=== PATIENT | female | born 1940 | race Caucasian/White ===

== ENCOUNTER 2022-03-21 15:23 | Emergency (ER) | payer MEDICARE, BC, SELFPAY ==
[2022-03-21 15:37] VITALS: BP 137/77; PULSE 91; RESP 18; TEMP 36.7; O2SAT 98; BMI 29.2
[2022-03-21 16:00] VITALS: BP 145/96; RESP 93; O2SAT 98
--- NOTE | 2022-03-21 16:06 | ED.GENADULT ---
HPI - General Adult General Chief complaint: Flank Pain Stated complaint: Back Left Pain - Possible Kidney Issue Time Seen by Provider: 03/21/22 15:52 Source: patient Mode of arrival: ambulatory Limitations: other (Seems to be a small degree of cognitive impairment.) History of Present Illness HPI narrative: 82-year-old female self-referred to the emergency department. She states that she began having left flank area pain for the past 3 days, intermittent, was severe as early as this morning. Now the pain seems to radiate into the left lower quadrant and lateral hip area. It is not accompanied by fever, hematuria, dysuria. She denies any nausea vomiting, diarrhea or blood in her stools. It is not affected by eating, she does not give me a clear answer when I ask if it is worse with urination. No prior history of similar symptoms. Denies any injury or trauma. She has not tried taking any Tylenol, ibuprofen or any other interventions to help with her symptoms. She denies any prior history of kidney stones. She tried to present to urgent care today, they cited that she would need to be evaluated in the emergency department. States the pain is sharp at times and then dull and achy at others. Does not really seem to radiate but it has moved. She is currently not symptomatic at the time of my interview. She is mostly concerned that this could be a kidney problem. She denies a prior history of kidney disease. Past medical history she states is benign, no major long-term health problems. 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 She denies any prior colonoscopy. She has also had a tubal ligation. She says she takes no prescription medications, she has no allergies. Social history without any unusual substance use or pertinent travel. ROS is notable for the intra-abdominal, urinary area and musculoskeletal symptoms as described above. Otherwise denies times 12 systems. Related Data Previous Rx's Medication Instructions Recorded levofloxacin 500 mg tablet 500 mg PO DAILY #7 tabs 03/21/22 Allergies Allergy/AdvReac Type Severity Reaction Status Date / Time No Known Drug Allergies Allergy Verified 03/21/22 15:36 PFSH PFS Social History Smoking Status: Never smoker Do you use any of these nicotine containing products: None Second hand tobacco smoke exposure: Yes How often do you have a drink containing alcohol: monthly or less How many standard drinks containing alcohol do you have on a typical day: 1 or 2 How often do you have six or more drinks on one occasion: Never AUDIT-C Alcohol total score: 1 Non-prescribed substance use: denies use service: No Exam Const: Vital Signs, click to edit/add: Vital Signs - 24 hr 03/21/22 15:37 03/21/22 16:00 Temperature 98.1 F Pulse Rate [Pulse Oximeter] 91 Respiratory Rate 18 93 H Blood Pressure [Ri ght Upper Arm] 137/77 145/96 H Pulse Oximetry 98 98 Oxygen Delivery Me thod Room Air Room Air Documenting provider has reviewed patient's vital signs: yes Common normals: no apparent distress General appearance: cooperative, comfortable and well kempt HENMT: Common normals: normocephalic Head and scalp: normocephalic Face and sinus: normal facial exam Mouth: oral and palatal mucosa normal Throat: posterior oropharynx normal Eye: Common normals: conjunctivae normal and no scleral icterus Conjunctiva: conjunctiva(e) normal Neck & C-Spine: Common normals: no lymphadenopathy and supple Resp: Common normals: normal respiratory effort, no use of accessory muscles and clear to auscultation bilaterally Effort & inspection: able to speak in complete sentences Auscultation: clear to auscultation bilaterally Cardio: Common normals: regular rate, regular rhythm, S1 normal heart sound, S2 normal heart sound, no murmurs and peripheral pulses 2+ throughout Rate: regular rate Rhythm: regular rhythm Heart sounds: S1 normal and S2 normal Peripheral pulses: pulses 2+ throughout GI: Common normals: Normal to inspection, nondistended, normoactive bowel sounds present, soft to palpation, non-tender, no hepatosplenomegaly and no masses Palpation: soft and no hepatosplenomegaly : Other: Mild CVA tenderness on the left only, none on the right. Back & Pelvis: Other: Mild CVA tenderness as described above though it was not fully reproducible. She is also tender on palpation of the left SI joint but not the lumbar spine. She is also tender to the greater trochanter on the left side but has normal range of motion of the left hip with no tenderness to manipulation of the glenohumeral joint. Neuro: Speech: speech normal Motor exam: no tremor noted and no movement abnormalities noted Psych: Appearance: well kempt Attitude: calm and engaged Insight: fair Judgement: fair Skin: Common normals: no rashes or lesions noted General skin exam: no rashes or lesions noted Course Course Hospital Course: Suspect musculoskeletal etiology though cannot exclude urogenital or renal etiology. Recommend UA, basic screening labs. Will give 650 of Tylenol x1 and re-evaluate. If any signs of bladder infection, would recommend CT scan of the abdomen and pelvis. Vital Signs Vital signs: Initial Vital Signs Temperature 98.1 F 03/21/22 15:37 Temperature Source Temporal Artery Scan 03/21/22 15:37 Pulse Rate 91 03/21/22 15:37 Pulse Rhythm 03/21/22 15:37 Respiratory Rate 18 03/21/22 15:37 Blood Pressure 137/77 03/21/22 15:37 Blood Pressure Mean 97 03/21/22 15:37 Blood Pressure Position Supine 03/21/22 15:37 Pulse Oximetry 98 03/21/22 15:37 Oxygen Delivery Method 03/21/22 15:37 Vital Signs Temperature 98.1 F 03/21/22 15:37 Pulse Rate 91 03/21/22 15:37 Respiratory Rate 18 03/21/22 15:37 Blood Pressure 137/77 03/21/22 15:37 Pulse Oximetry 98 03/21/22 15:37 Oxygen Delivery Method 03/21/22 15:37 Temperature 98.1 F 03/21/22 15:37 Pulse Rate 91 03/21/22 15:37 Respiratory Rate 93 H 03/21/22 16:00 Blood Pressure 145/96 H 03/21/22 16:00 Pulse Oximetry 98 03/21/22 16:00 Oxygen Delivery Method 03/21/22 16:00 Medical Decision Making MDM Narrative Medical decision making narrative: Discussed 5 labs with patient. I recommended a CT scan to look for a kidney stone which she declines at this time, citing that she has kept her family member waiting too long today. Discuss that infection in the setting of kidney stone can be bothersome and problematic. It is somewhat reassuring that her pain has improved. She was agreeable to coming back to the emergency department if she worsens clinically or if her pain is not resolved on the antibiotics. There was no convincing her otherwise. Labs otherwise do not indicate any signs of sepsis or other worrisome findings such as kidney disease, electrolyte abnormality etc.. Patient will be given single dose of levofloxacin and continue on this once daily for the next 7 days. Alarm symptoms reviewed and discussed also given in writing at discharge. All questions answered Lab Data Lab results reviewed: Yes I reviewed the patient's lab results Labs: Lab Results 03/21/22 03/21/22 03/21/22 Range/Units 16:17 16:17 16:30 WBC 12.71 H (4.50-11.00) K/uL RBC 4.45 (4.00-5.20) m/uL Hgb 12.6 (12.0-16.0) gm/dL Hct 38.9 (33.0-51.0) % MCV 87 (80-100) fL MCH 28 (26-34) pg MCHC 32 (32-36) gm/dL RDW Coeff of Kang 13.5 (11.5-15.5) % Plt Count 164 (140-440) K/uL Neut % (Auto) 82.4 H (42.0-72.0) % Lymph % (Auto) 5.7 L (20-44) % Carver % (Auto) 11.2 H (0.0-11.0) % Eos % (Auto) 0.2 (0.0-7.0) % Baso % (Auto) 0.3 (0.0-3.0) % Neut # (Auto) 10.50 H (1.7-7.0) K/uL Lymph # (Auto) 0.70 L (0.90-2.90) K/uL Carver # (Auto) 1.40 H (0.00-0.90) K/UL Eos # (Auto) 0.00 (0.00-0.50) K/uL Baso # (Auto) 0.00 (0.00-0.30) K/uL Abs Immat Gran (auto) 0.00 (0.00-0.30) K/uL Imm/Tot Granulo (auto) 0.2 % Sodium 135 (135-149) mmol/L Potassium 3.4 L (3.6-5.1) mmol/L Chloride 100 (96-114) mmol/L Carbon Dioxide 26 (20-32) mmol/L BUN 26 (7-30) mg/dL Creatinine 0.8 (0.5-1.5) mg/dL Estimated Creat Clear 36.16 Estimated GFR 73 ml/min Glucose 108 (60-115) mg/dL Calcium 9.5 (8.4-10.6) mg/dL C-Reactive Protein 19.2 H (0.5-1.0) mg/dL Urine Color Dark yellow (Yellow) Urine Appearance Cloudy A (Clear) Urine pH 6.5 (5.0-8.5) Ur Specific [place] 1.020 (1.000-1.030) Urine Protein 2+ A (Negative) Urine Glucose (UA) Negative (Negative) Urine Ketones 1+ A (Negative) Urine Blood 2+ A (Negative) Urine Nitrite Positive A (Negative) Urine Bilirubin 1+ A (Negative) Urine Urobilinogen 1.0 (0.2-1.0) Ur Leukocyte Esterase 3+ A (Negative) Urine RBC 25-50 A (0-2) Urine WBC 5-10 A (0-5) Urine WBC Clumps Moderate A (None) Ur Squamous Epith Cells Few (None-Few) Urine Bacteria Many A (None) Discharge Plan Discharge Clinical Impression: Complicated UTI (urinary tract infection) Patient Disposition: Home w/ Parent or Adult Condition: Stable Instructions: Urinary Tract Infection in Older Adults (ED) Additional Instructions: As we discussed, you would definitely have a urinary infection. You need to start antibiotics. We will give your 1st dose here in the emergency room and then you will need up the additional doses by tomorrow, taking these as prescribed. As we discussed, I cannot exclude a kidney stone complicating this infection. Based on the fact that your having flank pain also, I would recommend a CT scan, as we discussed. You declined this, citing that you do not want to wait and I let you know that this would likely be another 2 hours. As we discussed, you will need to come back to the emergency department if you are feeling sicker or if your pain does not subside within a couple of days. Okay to take Tylenol and or ibuprofen as needed for pain. You should also come back if your running high fevers, or feeling very weak or have any worsening symptoms. Activity Level: No Restrictions Discharge Diet: Regular Prescriptions: New levofloxacin 500 mg tablet 500 mg PO DAILY Qty: 7 0RF Follow Up/Referrals: Provider,Not a Local [Primary Care Provider] - Stand Alone Forms: [employer] Info Instructions
[2022-03-21] MEDS: ACETAMINOPHEN 325 MG TABLET 650 MG PO (16:11)
[2022-03-21 16:49] LABS: Appearance Urine Cloudy (Clear); Bilirubin Urine 1+ (Negative); Blood Urine 2+ (Negative); Color Urine Dark yellow (Yellow); Glucose Urine Negative (Negative); Ketones Urine 1+ (Negative); Leukocyte Esterase Urine 3+ (Negative); Nitrite Urine Positive (Negative); Protein Urine 2+ (Negative); pH Urine 6.5 (5.0-8.5)
[2022-03-21 16:49] LABS: Basophils Percent Auto 0.3 % (0.0-3.0); Eosinophils Percent Auto 0.2 % (0.0-7.0); Hematocrit 38.9 % (33.0-51.0); Hemoglobin* 12.6 gm/dL (12.0-16.0); Immature Granulocytes Pct Auto 0.2 %; Lymphocytes Percent Auto 5.7 % (20-44); Mean Corpuscular HGB Conc 32 gm/dL (32-36); Mean Corpuscular Hemoglobin 28 pg (26-34); Mean Corpuscular Volume 87 fL (80-100); Monocytes Percent Auto 11.2 % (0.0-11.0); Neutrophils Percent Auto 82.4 % (42.0-72.0); Platelet Count* 164 K/uL (140-440); RDW Coefficient of Variation % 13.5 % (11.5-15.5); Red Blood Count 4.45 m/uL (4.00-5.20); White Blood Count* 12.71 K/uL (4.50-11.00)
[2022-03-21 17:03] LABS: Chloride* 100 mmol/L (96-114)
[2022-03-21 17:04] LABS: Potassium* 3.4 mmol/L (3.6-5.1); Sodium* 135 mmol/L (135-149)
[2022-03-21 17:06] LABS: Creatinine* 0.8 mg/dL (0.5-1.5); Est. Creatinine Clearance* 36.16; Estimated Glomerular Filt Rate 73 ml/min
[2022-03-21 17:07] LABS: Blood Urea Nitrogen* 26 mg/dL (7-30); Carbon Dioxide* 26 mmol/L (20-32); Slide Review Reflex No
[2022-03-21 17:08] LABS: Calcium* 9.5 mg/dL (8.4-10.6); Glucose* 108 mg/dL (60-115)
[2022-03-21 17:14] LABS: RBC Urine 25-50 (0-2); Squamous Epithelial Cell Urine Few (None-Few); WBC Clumps Urine Moderate
[2022-03-21 17:15] LABS: Bacteria Urine Many
[2022-03-21 17:21] LABS: C Reactive Protein* 19.2 mg/dL (0.5-1.0)
[2022-03-21] MEDS: levoFLOXacin 500 MG TABLET PO (17:40)
[2022-03-21 17:45] VITALS: PULSE 104; O2SAT 96
== END 2022-03-21 17:45 | disposition home or self-care (01) ==
PROVIDERS: Emergency Provider Family Medicine
DX: N39.0 Urinary tract infection, site not specified (principal)
CPT/HCPCS: 36415; 80048; 81003; 81015; 85025; 86140; 87086; 87186; 99283; A9270

== ENCOUNTER 2022-04-02 12:43 | Outpatient (CLI) | payer MEDICARE, BC, SELFPAY | END 2022-04-02 12:44 | disposition home or self-care (01) | LOC: LKVREF 04-08 12:17 | PROVIDERS: Visit Provider Nurse Practitioner Family | DX: N39.0 Urinary tract infection, site not specified (principal) | CPT/HCPCS: 87086; 87186 ==